=== PATIENT | female | born 1965 | race Asian ===

== ENCOUNTER → 2019-05-12 | Outpatient (CLI) | payer OTHER ==
[~2019-05-12] MED LIST: CARV-39 PO; IBUP200C8 PO; METF500T27 PO; PRAV40TA2 PO
[2019-05-12 14:29] LABS: BASOPHILS # (AUTO) 0.04 x10^3/uL (0-0.1); BASOPHILS % (AUTO) 1 % (0-1); EOSINOPHILS # (AUTO) 0.15 x10^3/uL (0-0.4); EOSINOPHILS % (AUTO) 2 % (1-7); LYMPHOCYTES % (AUTO) 22 % (22-44); MD NO; MEAN CORPUSCULAR HEMOGLOBIN 28.4 pg (27.0-34.8); MEAN CORPUSCULAR HGB CONC 31.9 g/dL (32.4-35.8); MEAN CORPUSCULAR VOLUME 89.1 fL (80-100); MEAN PLATELET VOLUME 8.5 fL (7.4-10.4); MONOCYTES % (AUTO) 5 % (2-9); NEUTROPHILS # (AUTO) 6.46 x10^3/uL (1.8-6.8); NEUTROPHILS % (AUTO) 71 % (42-75); PLATELET COUNT 335 x10^3/uL (130-400); RED BLOOD COUNT 5.22 x10^6/uL (3.82-5.3); RED CELL DISTRIBUTION WIDTH 16.1 % (9.6-15.2)
[2019-05-12 14:37] LABS: MICROSCOPIC AUTO
[2019-05-12 14:40] LABS: ALBUMIN 3.9 g/dL (3.4-5.0); ANION GAP 7 mmol/L (5-15); CALCIUM 9.3 mg/dL (8.5-10.1); CHLORIDE 105 mmol/L (98-107)
[2019-05-12 14:43] LABS: CULTURE INDICATED? YES
[2019-05-12 14:45] LABS: ALANINE AMINOTRANSFERASE 31 U/L (12-78); ALKALINE PHOSPHATASE 68 U/L (45-117); BILIRUBIN,TOTAL 0.4 mg/dL (0.2-1.0); CREATININE 0.76 mg/dL (0.55-1.02)
== END | disposition home or self-care (01) ==
LOC: STAR 12:56
PROVIDERS: ATTEND Obstetrics & Gynecology
DX: Z01.818 Encounter for other preprocedural examination (principal); N81.10 Cystocele, unspecified; I44.4 Left anterior fascicular block
CPT/HCPCS: 36415; 80053; 81001; 84703; 85025; 87086; 93005

== ENCOUNTER 2019-05-19 10:20 | Day surgery (SDC) | payer OTHER ==
[~2019-05-19] VITALS: Ht 154.9 cm; Wt 53.6 kg
[2019-05-19] MEDS ORDERED: FENTANYL PF 100 MCG/2ML ONE ×2 (10:28→15:03)
[2019-05-19] MEDS ORDERED: MIDAZOLAM 1 MG/ML, 2ML ONE (10:28)
[2019-05-19] MEDS ORDERED: ROCURONIUM 10MG/ML,5ML ONE (10:29)
[2019-05-19] MEDS ORDERED: LIDOCAINE-MPF 2% ,5ML ONE (10:29)
[2019-05-19] MEDS ORDERED: ONDANSETRON 2MG/ML, 2ML ONE ×2 (10:29→15:10)
[2019-05-19] MEDS ORDERED: DEXAMETHASONE 4 MG/ML, 1ML ONE ×2 (10:29)
[2019-05-19] MEDS ORDERED: PROPOFOL 10 MG/ML, 20ML ONE (10:29)
[2019-05-19] MEDS ORDERED: CEFAZOLIN 1,000 MG ONE ×2 (10:29)
[2019-05-19] MEDS ORDERED: GABAPENTIN 300 MG CAPSULE PO ONE (10:30)
[2019-05-19] MEDS ORDERED: ACETAMINOPHEN 500 MG TABLET PO ONE (10:30)
[2019-05-19] MEDS ORDERED: SCOPOLAMINE PATCH, 1.5MG PATCH.TD72 TD ONE (10:30)
[2019-05-19] MEDS ORDERED: LACTATED RINGERS 1,000 ML IV SCH (10:31)
[2019-05-19] MEDS ORDERED: KETOROLAC 30 MG/1 ML ONE (10:33)
[2019-05-19] MEDS ORDERED: BUPIVACAINE/PF 0.25% ONE (10:51)
[2019-05-19] MEDS ORDERED: FLUORESCEIN SODIUM 500 MG/5 ML ONE (10:51)
[2019-05-19] MEDS ORDERED: EPINEPHRINE 1 MG/ML, 1ML ONE (10:51)
[2019-05-19] MEDS ORDERED: HYDROmorphone 2 MG/ML, 1ML IVPush PRN (11:00)
[2019-05-19] MEDS ORDERED: ONDANSETRON 2MG/ML, 2ML IV PRN (11:00)
[2019-05-19] MEDS ORDERED: OXYcodone 5 MG/5 ML ORAL.SOL UDC PO PRN (11:00)
[2019-05-19] MEDS ORDERED: LORazepam 2 MG/ML, 1ML IVPush PRN (11:00)
[2019-05-19] MEDS ORDERED: LABETALOL 5 MG/ML SYR. (IV ONLY) IV PRN (11:00)
[2019-05-19] MEDS ORDERED: METOCLOPRAMIDE 5 MG/ML, 2ML IV PRN (11:00)
[2019-05-19] MEDS ORDERED: FENTANYL PF 100 MCG/2ML IV PRN (11:00)
[2019-05-19] MEDS ORDERED: MEPERIDINE/PF 25MG/ML,1ML IVPush PRN (11:00)
[2019-05-19] MEDS ORDERED: hydrALAzine 20 MG/ML, 1ML IV PRN (11:00)
[2019-05-19 12:21] LABS: HCG UR SG 1.015 (1.003-1.030)
[2019-05-19] MEDS ORDERED: SUGAMMADEX 200 MG/2 ML IVPush ONE (12:30)
[2019-05-19] MEDS ORDERED: INDIGO CARMINE 0.8%, 5ML ONE (14:17)
[2019-05-19] MEDS ORDERED: HYDROmorphone 1 MG/ML, 1ML INJ ONE (15:04)
[2019-05-19] MEDS ORDERED: OXYcodone 5 MG/5 ML ORAL.SOL UDC ONE (15:04)
[2019-05-19] MEDS ORDERED: OXYcodone/APAP 5/325MG TABLET PO PRN (20:30)
[2019-05-19] MEDS ORDERED: DOCUSATE 100 MG CAPSULE PO SCH (21:00)
[2019-05-19] MEDS ORDERED: IBUPROFEN 600 MG TABLET PO SCH (21:00)
== END 2019-05-19 21:59 | disposition home or self-care (01) ==
LOC: OUT 10:20 → 4NE 19:07 → OUT 21:59
PROVIDERS: ATTEND Obstetrics & Gynecology
DX: N81.2 Incomplete uterovaginal prolapse (principal); N81.89 Other female genital prolapse; D25.9 Leiomyoma of uterus, unspecified; N73.6 Female pelvic peritoneal adhesions (postinfective); G89.29 Other chronic pain; R10.2 Pelvic and perineal pain; I10 Essential (primary) hypertension; Z79.1 Long term (current) use of non-steroidal anti-inflammatories (NSAID); Z79.84 Long term (current) use of oral hypoglycemic drugs; Z79.899 Other long term (current) drug therapy
CPT/HCPCS: 58552; 81025; 82962; 88307; J0171; J0690; J1100; J1170; J1885; J2250; J2405; J2704; J3010; J3490; J7120; G0378